=== PATIENT | male | born 1945 | race Caucasian/White ===

== ENCOUNTER → 2022-07-10 | Outpatient (CLI) | payer OTHER | END | disposition home or self-care (01) | LOC: LABPAT 13:14 | PROVIDERS: ATTEND Orthopaedic Surgery | DX: Z01.812 Encounter for preprocedural laboratory examination (principal); M17.12 Unilateral primary osteoarthritis, left knee; Z22.322 Carrier or suspected carrier of Methicillin resistant Staphylococcus aureus | CPT/HCPCS: 87070 ==

== ENCOUNTER 2022-08-07 05:37 | Day surgery (SDC) | payer OTHER ==
[2022-08-01 15:30] VITALS: BMI 28.0
--- NOTE | 2022-08-06 14:49 | P.HPOR ---
History of Present Illness H&P Date: 08/06/22 Chief Complaint: Left knee pain The patient is a 77-year-old male who presents with progressive left knee pain for the past 2 years worsening over the past 3 months. He notes medial pain along with swelling and stiffness. He notes the knee feels unstable. He tried previous injections and therapy without much relief. He also uses a cane. He notes it severely limits him. Review of Systems As per HPI Past Medical History Past Medical History: Hearing Disorder / Deafness, Hyperlipidemia, Hypertension, Neurologic Disorder, Pulmonary Embolus (PE) Additional Past Medical History / Comment(s): Gout. Hx PE 10 yrs ago. Neuropathy in legs. 2 compressed vertebra in back. Chronic left leg and back pain. Hard of hearing, especially in right ear. Hx of frequent falls. History of Any Multi-Drug Resistant Organisms: None Reported Past Surgical History: Appendectomy Additional Past Surgical History / Comment(s): Bilateral cataracts removed. Past Anesthesia/Blood Transfusion Reactions: No Reported Reaction Past Psychological History: No Psychological Hx Reported Smoking Status: Former smoker Past Alcohol Use History: Daily Additional Past Alcohol Use History / Comment(s): Quit smoking 20 yrs ago. Drinks 2-3 beers daily. Past Drug Use History: None Reported - Past Family History Mother Family Medical History: No Reported History Medications and Allergies Home Medications Medication Instructions Recorded Confirmed Type Acetaminophen Tab [Tylenol Tab] 500 - 1,000 mg PO Q4-6H PRN 08/01/22 08/01/22 History Atorvastatin [Lipitor] 10 mg PO HS 08/01/22 08/01/22 History Cholecalciferol [Vitamin D3 (25 25 mcg PO DAILY 08/01/22 08/01/22 History Mcg = 1000 Iu)] Cyanocobalamin (Vitamin B-12) 3,000 mcg PO DAILY 08/01/22 08/01/22 History [Vitamin B-12] Gabapentin [Neurontin] 400 mg PO TID 08/01/22 08/01/22 History Percocet (Unknown Dose) 1 tab PO Q4-6H PRN 08/01/22 08/01/22 History Risedronate Sodium [Actonel] 35 mg PO WE 08/01/22 08/01/22 History allopurinoL [Zyloprim] 100 mg PO DAILY 08/01/22 08/01/22 History lisinopriL [Zestril] 5 mg PO BID 08/01/22 08/01/22 History Allergies Allergy/AdvReac Type Severity Reaction Status Date / Time Penicillins Allergy Rash/Hives Verified 08/01/22 15:09 warfarin [From Coumadin] Allergy Rash/Hives Verified 08/01/22 15:09 Physical Examination - Knee left Appearance: effusion Effusion grade: grade 3 Varus alignment in stance: 5 degrees Tenderness with palpation: medial Pain: with flexion Gait: limping ROM: extension: -10 degrees ROM: flexion: 100 degrees Crepitus with motion: Yes Strength: extension: 5/5 Strength: flexion: 5/5 Meniscal tests: medial meniscal tests: positive, medial joint line pain: positive Results The patient is a well-developed well-nourished male proximal 66, 232 pounds of mesomorphic Maurer. HEENT exam is nonfocal, neck supple. He has painless passive motion of the left hip. Straight leg raise is negative. His distal neurovascular appears intact in the left lower extremity. - Diagnostic results Knee x-ray: image reviewed (3 views of the left knee obtained the office show severe osteoarthrosis with [id number] changes and subchondral sclerosis.) Assessment and Plan Assessment: Left knee severe tricompartmental osteoarthrosis History of DVT/pulmonary embolism Plan: I talked to the patient at length regarding his condition along with treatment options. At this point he is quite symptomatic and limited because of pain related to his osteoarthrosis despite previous conservative measures. After thorough discussion he opted to proceed with surgery. We will plan to proceed with left total knee arthroplasty. Risks and benefits were discussed at length in layman's terms. We will institute DVT prophylaxis postoperatively.
[~2022-08-07 05:37] MED LIST: ACETAMINOPHEN TAB 500 MG TAB PO PRN; MELOXICAM 7.5 MG TAB PO PRN; TRANEXAMIC ACID IN NACL,ISO-OS 1,000 MG in SALINE 1 100ML.BAG IVPB PRN
[2022-08-07] MEDS ORDERED: DEXAMETHASONE SOD PHOSPHATE 4 MG/ML 1 ML VIAL IV ONE (05:49)
[2022-08-07] MEDS ORDERED: LIDOCAINE 1% (10MG/ML) FOR IV START INTRADERMA PRN (05:49)
[2022-08-07] MEDS: LACTATED RINGERS 1,000 ML IV SCH ×2 (06:25→10:12)
[2022-08-07] MEDS ORDERED: MIDAZOLAM 2 MG/2 ML VIAL IVP ONE (06:59)
[2022-08-07] MEDS ORDERED: HYDROmorphone 0.5 MG/0.5 ML SYRINGE IVP PRN ×3 (07:00→09:30)
[2022-08-07] MEDS ORDERED: ONDANSETRON 4 MG/2 ML VIAL IVP PRN (07:00)
[2022-08-07] MEDS ORDERED: ROPIVACAINE 5 MG/ML 30 ML VIAL ONE (07:45)
[2022-08-07] MEDS ORDERED: MIDAZOLAM 2 MG/2 ML VIAL ONE (07:45)
[2022-08-07] MEDS ORDERED: PROPOFOL 10 MG/ML 20 ML VIAL IV ONE (07:45)
[2022-08-07] MEDS ORDERED: fentaNYL (PF) 50 MCG/ML 2 ML AMP ONE (07:45)
[2022-08-07] MEDS ORDERED: TRANEXAMIC ACID IN NACL,ISO-OS 1,000 MG/100 ML BAG ONE (07:45)
[2022-08-07] MEDS ORDERED: DEXAMETHASONE SOD PHOSPHATE 4 MG/ML 1 ML VIAL ONE (07:45)
[2022-08-07] MEDS ORDERED: ceFAZolin 3,000 MG in SODIUM CHLORIDE 0.9% IRRIGATIO 3,000 ML IRRIGATION ONE (08:17)
[2022-08-07] MEDS ORDERED: MAGNESIUM HYDROXIDE 2,400 MG/10 ML CUP PO PRN (09:30)
[2022-08-07] MEDS ORDERED: NALOXONE 0.4 MG/ML 1 ML VIAL IV PRN (09:30)
[2022-08-07] MEDS ORDERED: HYDROcodone/APAP 5-325MG 1 EACH TAB PO PRN (09:30)
--- NOTE | 2022-08-07 09:52 | P.OP ---
Date of Procedure: 08/07/22 Preoperative Diagnosis: Left knee severe tricompartmental osteoarthrosis Postoperative Diagnosis: Same Procedure(s) Performed: Left total knee arthroplastycementedcruciate retaining Implants: Depuy Attune size 7 cemented femoral component, size 7 cemented tibial component, and 12 mm articular surface, 38 mm cemented patellar component. This was a cruciate retaining implant. Anesthesia: regional, spinal Surgeon: Marvel Pedro C.O.D. Clerk #1: Don Alvarado Estimated Blood Loss (ml): 50 Pathology: other (Bone fragments) Condition: stable Disposition: PACU Indications for Procedure: The patient is a 77-year-old male presents with progressive left knee pain secondary to osteoarthrosis despite conservative measures. A discussion of the risks and benefits of operative intervention versus continued conservative measures was made with patient. He opted to proceed with surgery. Operative risks to include infection, neurovascular injury, development of blood clots, fracture, component loosening/failure need for subsequent procedures was discussed. Informed consent was obtained. Operative Findings: As below Description of Procedure: The patient was brought to the operating room, and after induction of spinal anesthesia the left lower extremity was prepped and draped in a normal fashion. The tourniquet was inflated to 270 mmHg. A longitudinal incision extending 3 finger breaths above the superior pole of the patella extending to the medial aspect the tibial tubercle was then made. The skin and subcutaneous tissues were divided sharply. Electrocautery was used for hemostasis. A medial parapatellar arthrotomy was then performed. The medial soft tissues to include the superficial and deep portions of the medial collateral ligament as well as the medial hamstring tendons were elevated subperiosteally. The proximal medial tibia osteophytes were carefully removed. The patella was everted. The knee was flexed. A portion of the retropatellar fat pad was excised sharply. The anterior cruciate ligament was sacrificed. A starting hole was made in the distal femur 1 cm anterior to the posterior cruciate origin. An intramedullary femoral guide was gently inserted planning on 5 valgus distal cut with 9 mm distal resection. The cutting block was pinned in place. The distal cut was then made. The posterior referencing sizing guide was utilized. 3 of external rotation was built into the system and verified off the trans- epicondylar axis and the posterior condyles. I felt size 7 was most appropriate. The cutting block was pinned in place. The anterior, posterior, and chamfer cuts were then made. The bone fragments were removed. A sulcus cut was then made with the appropriate guide. The trial size 7 femoral component was then placed and was fully seated. There was good anterior to posterior and medial to lateral fit. The distal peg holes were then drilled. The trial component was then removed. Attention was then paid towards preparing the proximal tibia. An extra medullary guide was utilized in line with the tibial shaft and second metatarsal distally. A 7 posterior slope was planned. I planned on 2 mm resection from the medial compartment. The cutting block was pinned in place. The proximal tibial cut was then made. The bone was removed in one fragment. The remnants of the medial and lateral menisci were excised the capsule junction with electrocautery. The tibia sized most appropriately at size 7. The posterior osteophytes off the distal femur were carefully removed with a curved osteotome. The trial tibial and femoral components were placed along with a 12 millimeters articular surface. I was able to obtain full flexion and extension with good stability with varus and valgus stress. After several flexion and extension cycles, the tibial rotation was marked with electrocautery in line with the medial one third of the tibial tubercle. Attention was then paid towards preparing the patella. A patella reamer was utilized taking this down to 14 mm of bone stock. A good flush cut was made. The patella sized most appropriately at 38 millimeters. The peg holes were then drilled. The trial component was placed. The knee was taken through a range of motion. I had good patellofemoral tracking with no hands technique. The trial components were then removed. The tibia was prepared in the appropriate rotation with appropriate drill and keel punch. The flexion and extension gaps were checked and felt to be symmetric. The bony surfaces were prepared with pulsatile lavage and dried. The deep tibial component was then cemented in place and was fully seated. Excess cement was removed. The femoral component was cemented in place and was fully seated. Again excess cement was removed. The trial 12 millimeters surface was then inserted in the knee was put in full extension. The patella component was cemented in place. After the cement had sufficiently hardened, the knee was again taken through a range of motion. Again there was good stability in flexion and extension with varus and valgus stress. The trial articular surface was then removed. The final articular surface was placed and was impacted. Care was taken to avoid any soft tissue interposition. Pulsatile lavage was again utilized. The tourniquet was deflated with approximately 60 minutes total tourniquet time. There was minimal drainage therefore a deep drain was not placed. The medial parapatellar arthrotomy was then closed with #2 Ethibond suture. The subcutaneous tissues were reapproximated interrupted 2-0 Vicryl sutures. The skin was reapproximated with 3-0 subarticular strata fix suture. Skin tape and adhesive was applied. A sterile dressing was applied. The patient was then awoken from sedation and transferred to recovery room in good condition. Blood loss was estimated at 50 milliliters. No complications were incurred. Sponge and needle counts were correct at the end the case. Don SIMS assisted during the major components this case to include exposure, bone resection, and implantation.
[2022-08-07] MEDS ORDERED: ROPIVACAINE 0.2%-NS ON-Q PUMP 2 MG/ML EACH MISCELLANE ONE (10:05)
--- NOTE | 2022-08-07 10:22 | XR ---
EXAMINATION TYPE: XR knee limited LT DATE OF EXAM: 08/07/2022 COMPARISON: 07/04/2022 HISTORY: 77-year-old male evaluation for postoperative abnormality in alignment. TECHNIQUE: Portable AP and crosstable lateral views FINDINGS: Images show placement of left total knee arthroplasty. Distal femoral and proximal tibial components of the prosthesis are well seated without periprosthetic fracture. Anterior soft tissue swelling with scattered soft tissue air as well as intra-articular air related to recent operation. IMPRESSION: Uncomplicated postoperative appearance left total knee arthroplasty.
--- NOTE | 2022-08-07 11:14 | P.ANPRN ---
Procedure Note - Anesthesia - Nerve Block Performed Left Adductor Canal Infusion Time Out Performed: Yes Date of Procedure: 08/07/22 Procedure Start Time: 06:58 Procedure Stop Time: 07:07 Location of Patient: PreOp Indication: Acute Post-Operative Pain, Requested by Surgeon Sedation Type: Sedate with meaningful contact maintained Preparation: Sterile Prep, Sterile Dressing Position: Supine Catheter: Indwelling Needle Types: Pajunk Needle Gauge: 21 Ultrasound used to visualize needle placement: Yes Ultrasound used to observe medication spread: Yes Blood Aspirated: No Pain Paresthesia on Injection Noted: No Resistance on Injection: Normal Image Stored and Saved: Yes Events: Uneventful and Well Tolerated (ropi .5% 20cc plus dexamethasone 4mg)
--- NOTE | 2022-08-07 11:15 | P.ANPRN ---
Procedure Note - Anesthesia - Nerve Block Performed Left iPack Single Time Out Performed: Yes Date of Procedure: 08/07/22 Procedure Start Time: 07:08 Procedure Stop Time: 07:11 Location of Patient: PreOp Indication: Acute Post-Operative Pain, Requested by Surgeon Sedation Type: Sedate with meaningful contact maintained Preparation: Sterile Prep Position: Supine Needle Types: Pajunk Needle Gauge: 21 Ultrasound used to visualize needle placement: Yes Ultrasound used to observe medication spread: Yes Blood Aspirated: No Pain Paresthesia on Injection Noted: No Resistance on Injection: Normal Image Stored and Saved: Yes Events: Uneventful and Well Tolerated (ropi .5% 25cc plus dexamethasone 4mg)
[2022-08-07] MEDS: GABAPENTIN 400 MG CAP PO SCH ×2 (15:52→20:50)
[2022-08-07] MEDS ORDERED: GABAPENTIN 400 MG CAP PO SCH (16:00)
--- NOTE | 2022-08-07 16:14 | P.CONS ---
History of Present Illness - Reason for Consult Consult date: 08/07/22 Medical managment - Chief Complaint Left knee osteoarthritis - History of Present Illness The patient is a 77-year-old male who presents with progressive left knee pain for the past 2 years worsening over the past 3 months. Patient presents to the hospital for elective left total knee arthroplasty. Patient is currently postop day #0 from this procedure doing well without any significant complaints he denies any nausea vomiting fever chills chest pain or shortness of breath he is tolerating an oral diet. He is not having any difficulty in breathing Review of Systems Full complete 12 point review of system conducted pertinent positives and negative noted in HPI Past Medical History Past Medical History: Hearing Disorder / Deafness, Hyperlipidemia, Hypertension, Neurologic Disorder, Pulmonary Embolus (PE) Additional Past Medical History / Comment(s): Gout. Hx PE 10 yrs ago. Neuropathy in legs. 2 compressed vertebra in back. Chronic left leg and back pain. Hard of hearing, especially in right ear. Hx of frequent falls. History of Any Multi-Drug Resistant Organisms: None Reported Past Surgical History: Appendectomy Additional Past Surgical History / Comment(s): Bilateral cataracts removed. Past Anesthesia/Blood Transfusion Reactions: No Reported Reaction Past Psychological History: No Psychological Hx Reported Smoking Status: Former smoker Past Alcohol Use History: Daily Additional Past Alcohol Use History / Comment(s): Quit smoking 20 yrs ago. Drinks 2-3 beers daily. Past Drug Use History: None Reported - Past Family History Mother Family Medical History: No Reported History Medications and Allergies Home Medications Medication Instructions Recorded Confirmed Type Acetaminophen Tab [Tylenol Tab] 500 - 1,000 mg PO Q4-6H PRN 08/01/22 08/07/22 H istory Atorvastatin [Lipitor] 10 mg PO HS 08/01/22 08/07/22 History Cholecalciferol [Vitamin D3 (25 25 mcg PO DAILY 08/01/22 08/07/22 History Mcg = 1000 Iu)] Cyanocobalamin (Vitamin B-12) 3,000 mcg PO DAILY 08/01/22 08/07/22 History [Vitamin B-12] Gabapentin [Neurontin] 400 mg PO TID 08/01/22 08/07/22 History Percocet (Unknown Dose) 1 tab PO Q4-6H PRN 08/01/22 08/07/22 History Risedronate Sodium [Actonel] 35 mg PO WE 08/01/22 08/07/22 History allopurinoL [Zyloprim] 100 mg PO DAILY 08/01/22 08/07/22 History lisinopriL [Zestril] 5 mg PO BID 08/01/22 08/07/22 History Allergies Allergy/AdvReac Type Severity Reaction Status Date / Time Penicillins Allergy Rash/Hives Verified 08/07/22 06:24 warfarin [From Coumadin] Allergy Rash/Hives Verified 08/07/22 06:24 Physical Exam Osteopathic Statement: *. No significant issues noted on an osteopathic structural exam other than those noted in the History and Physical/Consult. Vitals: Vital Signs Temp Pulse Resp BP Pulse Ox 08/07/22 13:15 55 L 148/71 08/07/22 13:00 53 L 145/81 08/07/22 12:45 70 147/81 08/07/22 12:30 61 154/69 08/07/22 12:15 60 144/79 08/07/22 12:00 58 L 146/65 08/07/22 11:45 54 L 147/70 08/07/22 11:30 58 L 151/67 08/07/22 11:15 97.8 F 55 L 18 147/83 98 08/07/22 10:40 53 L 16 132/61 99 08/07/22 10:20 95 16 126/72 99 08/07/22 10:05 60 16 124/67 100 08/07/22 09:50 96.8 F L 77 12 98/66 95 08/07/22 07:14 80 16 140/75 99 08/07/22 06:57 71 16 147/73 99 08/07/22 06:25 97.8 F 101 H 16 149/76 99 Intake and Output 08/07/22 08/07/22 08/07/22 06:59 14:59 22:59 Intake Total 100 1151 Output Total 50 Balance 100 1101 Intake: IV 100 1151 Output: Estimated Blood Loss 50 Other: Weight 96.8 kg 96.8 kg - Constitutional General appearance: average body habitus - EENT Eyes: PERRLA ENT: normal oropharynx Ears: bilateral: normal - Neck Neck: normal ROM - Respiratory Respiratory: bilateral: CTA - Cardiovascular Rhythm: regular Heart sounds: normal: S1, S2 - Gastrointestinal General gastrointestinal: normal bowel sounds - Neurologic Neurologic: CNII-XII intact - Psychiatric Psychiatric: A&O x's 3 Assessment and Plan (1) Knee pain Current Visit: Yes Status: Acute Code(s): M25.569 - PAIN IN UNSPECIFIED KNEE SNOMED Code(s): 2420942373 Plan: Left knee pain -Patient is postop day #0 from a left knee arthroscopy -Pain management per orthopedic surgery team Hypertension -Resume home lisinopril Hyperlipidemia -Continue with statin therapy Peripheral neuropathy Continue with gabapentin History gout -On allopurinol Disposition: PTOT consulted for recommendations on subacute rehab versus home with home
[2022-08-07] MEDS ORDERED: LORazepam 1 MG TAB PO PRN (17:19)
[2022-08-07] MEDS: HYDROcodone/APAP 10-325MG 1 EACH TAB PO PRN (20:50)
[2022-08-07] MEDS: lisinopriL 5 MG TAB PO SCH (20:50)
[2022-08-07] MEDS ORDERED: ATORVASTATIN 10 MG TAB PO SCH (21:00)
[2022-08-07] MEDS ORDERED: SENNOSIDES-DOCUSATE SODIUM 1 EACH TAB PO SCH (21:00)
[2022-08-08 03:09] VITALS: RESP 17
--- NOTE | 2022-08-08 07:09 | P.PN ---
Progress Note - Text The patient is status post left adductor canal catheter placement. The catheter was placed for postoperative pain control, status post total left knee arthroplasty. Ropivacaine 0.2% is infusing at 8 mLs per hour. The patient has no complaints of left lower extremity numbness or weakness. Patient's VAS score is 0-10. Assessment: Patient's adductor canal catheter is in place and working appropriately. Plan: continue infusion and adjust it as needed.
[2022-08-08 08:51] VITALS: BP 125/75; PULSE 75; TEMP 97.8
[2022-08-08] MEDS ORDERED: THIAMINE 100 MG TAB PO SCH (09:00)
[2022-08-08] MEDS ORDERED: allopurinoL 100 MG TAB PO SCH (09:00)
[2022-08-08] MEDS ORDERED: RIVAROXABAN 10 MG TAB PO SCH (09:00)
[2022-08-08] MEDS ORDERED: CYANOCOBALAMIN 500 MCG TAB PO SCH (09:00)
[2022-08-08] MEDS ORDERED: CHOLECALCIFEROL 25 MCG (1000 IU) TABLET PO SCH (09:00)
[2022-08-08] MEDS: GABAPENTIN 400 MG CAP PO SCH (09:11)
[2022-08-08] MEDS: lisinopriL 5 MG TAB PO SCH (09:11)
[2022-08-08] MEDS: HYDROcodone/APAP 10-325MG 1 EACH TAB PO PRN (09:11)
--- NOTE | 2022-08-08 10:01 | P.DS ---
Providers Date of admission: 08/07/2022 Expected date of discharge: 08/08/22 Attending physician: Marvel Pedro Consults: 08/07/22 09:34 Consult Physician Routine Consulting Provider: Jazlyn Boo Consult Reason/Comments: Medical Management s/p left total knee arthroplasty Do you want consulting provider notified?: Yes Primary care physician: Stated None Hospital Course: Date of admission: 08/07/2022 Date of discharge: 08/08/2022 Admission diagnosis: left knee osteoarthritis Discharge diagnosis: same Attending physician: Dr. Pedro Surgical procedures: left total knee arthroplasty Brief history: Patient is a 77-year-old male with a history of progressive primary left knee osteoarthritis. At this point patient has failed conservative treatment measures and has opted to proceed with a elective left total knee arthroplasty. Hospital course: Details of patient's surgery can be found in operative report. Patient tolerated the procedure well and was subsequently transported to orthopedic floor. Patient's orthopeidc and medical care was provided daily. Patient had daily laboratory tests performed for evaluation of overall blood counts. Patient had daily physical therapy to include strengthening range of motion as well as education with walker ambulation. Patient was treated with Xarelto for their postoperative DVT prophylaxis during their inpatient stay. Patient was noted to have a relatively uneventful postoperative course. Patient reported satisfactory pain control with oral pain medications by postoperative day 1. Patient showed satisfactory progress with physical therapy. Patient moved steadily through the program and had no difficulty meeting the goals by postoperative day 1. Given patient's otherwise satisfactory course and having met physical therapy goals, plan is to discharge patient home with health services on postoperative day 1. Discharge condition/disposition: Patient will be discharged home with health services in stable condition. Discharge medications: Instructions are given on resumption of patient's normal daily medications per primary care recommendation, in addition patient will be prescribed [place] 10 mg/325 mg; Eliquis 12 Colace; Eliquis 2.5 mg BID x 2 weeks Discharge instructions: 1. Wound care and infection precautions, keep incision dry and covered while showering, no lotions, creams, moisturizers. No soaking, tubs, pools, hottubs. Do not scrub over the incision. 2. Weight-bear as tolerated with walker / cane until follow-up. 3. Ice and elevate when necessary. Do not exceed 20 minutes per hour with ice pack. 4. Utilize compression sleeve until seen at first follow up appointment. 5. Visiting nursing care. 6. Home physical therapy including home CPM. 7. Pain meds and anticoagulants per prescription. 8. Pain medication has potential to cause constipation. Increase oral fluid and fiber intake. Contact primary care provider if you have not had a bowel movement within 48 hours after discharge 9. No anti-inflammatory medication until discussed at first post operative visit, this including Motrin, Aleve, Mobic, Diclofenac 10. Follow up in office at 2 weeks postop with Shayne Martell PA-C / Don Alvarado PA-C 11. Follow up with your primary care doctor 7-10 days after discharge. 12. Contact [facility] with any questions, . keep incision clean, dry, intact. while showering, cover fusion tape with Saran wrap. Keep fusion tape on until follow-up appointment in office in 2 weeks Assessment: left knee osteoarthritis Procedures: left total knee arthroplasty Patient Condition at Discharge: Good Plan - Discharge Summary Discharge Rx Participant: Yes New Discharge Prescriptions: New Docusate [Colace] 100 mg PO DAILY #30 capsule HYDROcodone/APAP 10-325MG [Charlotte 10-325] 1 tab PO Q6HR PRN #28 tab PRN Reason: Pain Apixaban [Eliquis] 2.5 mg PO BID #60 tab No Action Gabapentin [Neurontin] 400 mg PO TID Risedronate Sodium [Actonel] 35 mg PO WE Atorvastatin [Lipitor] 10 mg PO HS Cholecalciferol [Vitamin D3 (25 Mcg = 1000 Iu)] 25 mcg PO DAILY Cyanocobalamin (Vitamin B-12) [Vitamin B-12] 3,000 mcg PO DAILY allopurinoL [Zyloprim] 100 mg PO DAILY lisinopriL [Zestril] 5 mg PO BID Percocet (Unknown Dose) 1 tab PO Q4-6H PRN PRN Reason: Pain Acetaminophen Tab [Tylenol Tab] 500 - 1,000 mg PO Q4-6H PRN PRN Reason: Pain Discharge Medication List Acetaminophen Tab [Tylenol Tab] 500 - 1,000 mg PO Q4-6H PRN 08/01/22 [History] Atorvastatin [Lipitor] 10 mg PO HS 08/01/22 [History] Cholecalciferol [Vitamin D3 (25 Mcg = 1000 Iu)] 25 mcg PO DAILY 08/01/22 [History] Cyanocobalamin (Vitamin B-12) [Vitamin B-12] 3,000 mcg PO DAILY 08/01/22 [History] Gabapentin [Neurontin] 400 mg PO TID 08/01/22 [History] Percocet (Unknown Dose) 1 tab PO Q4-6H PRN 08/01/22 [History] Risedronate Sodium [Actonel] 35 mg PO WE 08/01/22 [History] allopurinoL [Zyloprim] 100 mg PO DAILY 08/01/22 [History] lisinopriL [Zestril] 5 mg PO BID 08/01/22 [History] Apixaban [Eliquis] 2.5 mg PO BID #60 tab 08/08/22 [Rx] Docusate [Colace] 100 mg PO DAILY #30 capsule 08/08/22 [Rx] HYDROcodone/APAP 10-325MG [Charl[place] 10-325] 1 tab PO Q6HR PRN #28 tab 08/08/22 [Rx] Follow up Appointment(s)/Referral(s): Don Alvarado PAC [PHYSICIAN PROPOSAL EDITOR] - 08/23/22 8:50 am () Patient Instructions/Handouts: Knee Replacement (DC) Activity/Diet/Wound Care/Special Instructions: Orthopedic Discharge Instructions: 1. Wound care and infection precautions, keep incision dry and covered while showering, no lotions, creams, moisturizers. No soaking, pools, hot tubs. Do not scrub over incision. 2. Weight-bear as tolerated with walker / cane until follow-up. 3. Ice and elevate when necessary. Do not exceed 20 minutes per hour with ice pack. 4. Utilize compression sleeve until seen at first follow up appointment. 5. Pain meds and anticoagulants per prescription. 6. Pain medication has potential to cause constipation. Increase oral fluid and fiber intake. Contact primary care provider if you have not had a bowel movement within 48 hours after discharge. 7. No anti-inflammatory medication until discussed at first post operative visit, this including Motrin, Aleve, Mobic, Diclofenac. 8. Follow up in office at 2 weeks postop with Shayne Martell PA-C / Don Alvarado PA-C 9. Follow up with your primary care doctor 7-10 days after discharge. 10. Contact [facility] with any questions, . Keep incision clean, dry, intact. While showering, cover fusion tape with Saran wrap. Keep fusion tape on until follow-up appointment in office at 2 weeks. Discharge Disposition: HOME WITH HOME HEALTH SERVICES
--- NOTE | 2022-08-08 10:07 | P.PN ---
Subjective Progress Note Date: 08/08/22 Principal diagnosis: left knee osteoarthritis patient was seen at bedside this morning resting simply sitting up in chair. Patient says he has just work with physical therapy and waled out in the [place] and up-and-down steps. Patient says he is forward going home today. Patient says he does have a walker for home. Patient says he did have a small bowel movement earlier this morning. Patient says he hasn't urinated several times since surgery yesterday. Patient states he is having some pain currently and his knee mostly at the backside of the knee. Patient denies chest pain, fever, shortness breath, nausea, vomiting, change in vision, loss of bowel/bladder control. Objective - Vital Signs Vital signs: Vital Signs Temp 97.8 F 08/08/22 08:00 Pulse 75 08/08/22 08:00 Resp 17 08/08/22 08:00 BP 125/75 08/08/22 08:00 Pulse Ox 96 08/08/22 08:00 FiO2 Intake & Output 08/07/22 08/08/22 08/08/22 18:59 06:59 18:59 Intake Total 1151 Output Total 250 100 Balance 901 -100 Weight 96.8 kg Intake: IV 1151 Output: Urine 200 100 Estimated Blood Loss 50 Other: Voiding Method Toilet Urinal # Voids 1 - Exam left knee: Incision is clean, dry, and intact. The exofin fusion tape is in good condition. There is minimal soft tissue swelling and ecchymosis surrounding the medial and lateral aspects of the incision. Calf is soft, no tenderness with palpation. Plantar flexion, dorsiflexion, EHL, FHL are intact. Sensory exam to light touch throughout the extremity is intact, dorsal pedis pulses 2+. Assessment and Plan Assessment: 1. left knee osteoarthritis - Postop day 1 status post left total knee arthroplasty Plan: 1. left knee osteoarthritis - patient stable at bedside this morning. Discharge home today with health services. 2. Appreciate medical management 3. Pain management - [place] 4. DVT ppx - xarelto in hospital. Going home with Eliquis. 2.5 mg BID x 2 weeks 5. GI ppx - senna in hospital. going home with colace 6. PT/OT - WBAT w/walker 7. Encourage incentive spirometer use 8. discharge planning - home without services today. Time with Patient: Less than 30
[2022-08-08 10:24] LABS: African American GFR (CKD) 103.5 (60.0-200.0); Anion Gap 7.2 mmol/L (10.00-18.00); BUN/Creat Ratio 15.81 Ratio (12.00-20.00); Calcium 8.6 mg/dL (8.7-10.3); Carbon Dioxide 25.6 mmol/L (20.0-27.5); Non-African American GFR(CKD) 89.3 (60.0-200.0); Potassium 3.8 mmol/L (3.5-5.5)
[2022-08-08 13:03] LABS: Basophils # (A) 0 X 10*3/uL (0.00-0.10); Basophils % (A) 0 %; Eosinophils # (A) 0 X 10*3/uL (0.04-0.35); Eosinophils % (A) 0 %; HCT 33.5 % (39.6-50.0); HGB 11.6 g/dL (13.0-17.0); Immature Grans, Automated 0.6 %; Lymphocytes # (A) 0.89 X 10*3/uL (0.90-5.00); Lymphocytes % (A) 16.3 %; MCH 41.6 pg (27.0-32.0); MCHC 34.6 g/dL (32.0-37.0); MCV 120.1 fL (80.0-97.0); Mean Platelet Volume 9.8 fL (9.5-12.2); Monocytes # (A) 0.61 X 10*3/uL (0.20-1.00); Monocytes % (A) 11.2 %; NRBC Per 100 WBC 0 /100 WBCS (0.0-0.0); Neutrophils # (A) 3.92 X 10*3/uL (1.80-7.70); Neutrophils % (A) 71.9 %; Platelet Count 94 X 10*3/uL (140-440); RBC 2.79 X 10*6/uL (4.40-5.60); RDW 11.9 % (11.5-14.5); WBC 5.45 X 10*3/uL (4.50-10.00)
[2022-08-08 13:04] LABS: Macrocytosis (M) 3+
--- NOTE | 2022-08-08 15:32 | P.PN ---
Subjective Progress Note Date: 08/08/22 (delayed charting seen at 1327) Patient is a 77-year-old male status post left total knee arthroplasty. Patient seen and examined at bedside. He was up and walking in the [place] initially and is doing well. He reports his pain is controlled. He denies any chest pain, shortness of breath, nausea, vomiting. We discussed that his platelets are 94 after surgery. He does believe he's had low platelets in the past but that it normalizes there was nothing significant. He follows with the PCP in [place], as well as with [facility] once yearly to maintain his [employer] benefits. I discussed with him having a repeat CBC in 1 week to ensure that his platelet count is responding to follow up with his primary care physician gerson. This was added to his discharge orders tab. General: nontoxic, no distress, appears at stated age Derm: warm, dry Head: atraumatic, normocephalic, symmetric Eyes: EOMI, no lid lag, anicteric sclera Mouth: no lip lesion, mucus membranes moist Cardiovascular: S1S2 reg, no murmur, positive posterior tibial pulse bilateral, Lungs: CTA bilateral, no rhonchi, no rales , no accessory muscle use Abdominal: soft, nontender to palpation, no guarding, no appreciable organom egaly Ext: no gross muscle atrophy, no edema, no contractures Neuro: CN II-XI grossly intact, no focal neuro deficits Psych: Alert, oriented, appropriate affect Assessment/plan: 77-year-old male status post left total knee arthroplasty. Acute blood loss anemia, anticipated outcome of surgery -Hemoglobin is 11.6 and near baseline. Should resolve without further intervention. No need for iron at this time. Thrombocytopenia -Undetermined etiology. Assume consumption secondary to recent surgery -Patient to have repeat CBC in 1 week. Patient given instructions. He was also given a blood work order. He'll follow-up with his primary care physician out of [facility] [place]. Hypertension, controlled -Resume lisinopril Dyslipidemia -Statin Home medication reconciliation was addressed. Discussed with nursing. Order for CBC placed on chart. Nursing will reprint discharge paperwork. Objective - Vital Signs Vital signs: Vital Signs Temp 97.8 F 08/08/22 08:00 Pulse 75 08/08/22 08:00 Resp 17 08/08/22 08:00 BP 125/75 08/08/22 08:00 Pulse Ox 96 08/08/22 08:00 FiO2 Intake & Output 08/07/22 08/08/22 08/08/22 18:59 06:59 18:59 Intake Total 1151 Output Total 250 100 Balance 901 -100 Weight 96.8 kg Intake: IV 1151 Output: Urine 200 100 Estimated Blood Loss 50 Other: Voiding Method Toilet Urinal # Voids 1 - Labs CBC & Chem 7: 08/08/22 06:44 08/08/22 06:44 Labs: Abnormal Lab Results - Last 24 Hours (Table) 08/08/22 08/08/22 Range/Units 06:44 06:44 RBC 2.79 L (4.40-5.60) X 10*6/uL Hgb 11.6 L (13.0-17.0) g/dL Hct 33.5 L (39.6-50.0) % MCV 120.1 H (80.0-97.0) fL MCH 41.6 H (27.0-32.0) pg Plt Count 94 L (140-440) X 10*3/uL Plt Count Comment DECREASED A Lymphocytes # 0.89 L (0.90-5.00) X 10*3/uL Eosinophils # 0 L (0.04-0.35) X 10*3/uL Sodium 134 L (135-145) mmol/L Anion Gap 7.20 L (10.00-18.00) mmol/L Calcium 8.6 L (8.7-10.3) mg/dL
== END 2022-08-08 13:57 | disposition home health service (06) ==
LOC: OR 05:37 → 4SSUR 09:55 → OR 08-08 13:57
PROVIDERS: ATTEND Orthopaedic Surgery
DX: M17.12 Unilateral primary osteoarthritis, left knee (principal); G89.18 Other acute postprocedural pain; E78.5 Hyperlipidemia, unspecified; I10 Essential (primary) hypertension; F10.90 Alcohol use, unspecified, uncomplicated; Z90.49 Acquired absence of other specified parts of digestive tract; Z98.41 Cataract extraction status, right eye; Z98.42 Cataract extraction status, left eye; Z86.711 Personal history of pulmonary embolism; Z87.891 Personal history of nicotine dependence; Z79.899 Other long term (current) drug therapy; Z79.1 Long term (current) use of non-steroidal anti-inflammatories (NSAID); Z88.0 Allergy status to penicillin; Z88.3 Allergy status to other anti-infective agents
CPT/HCPCS: 97161; 64999; 64448; 76942; 80048; 85025; 88300; 73560; 27447; C1713 ×2; C1776; C1751; J2250; J1100; J0690 ×3; J2405; J3010; J2795 ×2; J2704